=== PATIENT | male | born 1995 | race Caucasian/White ===

== ENCOUNTER 2016-12-04 13:27 | Emergency (ER) | payer SELFPAY | END 2016-12-04 15:01 | disposition home or self-care (01) | LOC: D.ER 13:27 | DX: S89.91XA Unspecified injury of right lower leg, initial encounter (principal); X58.XXXA Exposure to other specified factors, initial encounter; Y93.89 Activity, other specified; Y92.019 Unspecified place in single-family (private) house as the place of occurrence of the external cause; S80.11XA Contusion of right lower leg, initial encounter; F17.200 Nicotine dependence, unspecified, uncomplicated ==

== ENCOUNTER 2017-01-24 09:21 | Emergency (ER) | payer SELFPAY | END 2017-01-24 11:10 | disposition home or self-care (01) | LOC: D.ER 09:21 | DX: M54.16 Radiculopathy, lumbar region (principal); F17.200 Nicotine dependence, unspecified, uncomplicated ==

== ENCOUNTER 2018-11-15 10:01 | Emergency (ER) | payer MEDICAID ==
[~2018-11-15] VITALS: Ht 188 cm; Wt 102.3 kg
[2018-11-15 10:05] VITALS: BP 150/85; Ht 188 cm; Wt 102.3 kg
[2018-11-15] MEDS ORDERED: TORADOL10 MG PO (15:15)
== END 2018-11-15 15:35 | disposition home or self-care (01) ==
LOC: D.ER 10:01
DX: S91.312A Laceration without foreign body, left foot, initial encounter (principal); S91.012A Laceration without foreign body, left ankle, initial encounter; W25.XXXA Contact with sharp glass, initial encounter; Y92.89 Other specified places as the place of occurrence of the external cause